=== PATIENT | female | born 2000 | race African-American/Black ===

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

== ENCOUNTER 2023-12-12 08:05 | Emergency (ER) | payer MEDICAID ==
[~2023-12-12] VITALS: Ht 160 cm; Wt 67.7 kg
[2023-12-12 09:25] VITALS: BP 128/87; PULSE 103; RESP 18; TEMP 98.6; O2SAT 97
[2023-12-12] MEDS: ONDANSETRON ODT 4 MG TAB PO ONE (10:12)
[2023-12-12] MEDS ORDERED: PRED20TA2 PO (11:48)
[2023-12-12] MEDS ORDERED: ALBUAER3 IN (11:48)
[2023-12-12 11:57] LABS: Rapid Influenza B Positive (Negative)
[2023-12-12 11:59] LABS: Rapid Influenza A Positive (Negative)
[2023-12-12 12:03] LABS: COVID19 ANTIGEN SOFIA FIA NEGATIVE (NEGATIVE)
[2023-12-12] MEDS ORDERED: OSEL75CA5 PO (12:48)
[2023-12-12] MEDS ORDERED: ZOFR4T PO (12:48)
== END 2023-12-12 15:47 | disposition home or self-care (01) ==
LOC: ER 08:05
DX: J10.1 Influenza due to other identified influenza virus with other respiratory manifestations (principal); Z88.6 Allergy status to analgesic agent; Z20.822 Contact with and (suspected) exposure to COVID-19
CPT/HCPCS: 36415; 71045; 87426; 87804; 99284; Q0162